=== PATIENT | female | born 1975 | race African-American/Black ===

== ENCOUNTER 2018-04-30 15:51 | Emergency (ER) | payer SELFPAY | END 2018-04-30 16:15 | disposition left against medical advice (07) | LOC: NAV ERS 15:51 | DX: Z53.21 Procedure and treatment not carried out due to patient leaving prior to being seen by health care provider (principal) ==

== ENCOUNTER 2018-12-30 10:55 | Emergency (ER) | payer SELFPAY ==
[2018-12-30 11:29] LABS: Bilirubin Negative (Negative); Blood, Urine Negative (Negative); Clarity Clear (Clear); Glucose, Urine (Dipstick) Negative (Negative); Leukocyte Negative (Negative); Nitrite Negative (Negative); Protein, Urine (Dipstick) Negative (Neg-Trace); Urobilinogen 0.2 mg/dL (Less than 2)
[2018-12-30 11:42] LABS: Pregnancy Test - Urine (BHCG) Negative (Negative); Specific Gravity 1.015 (1.002-1.036)
[2018-12-30 11:43] LABS: Pregu Control Background? CLEAR/WHITE (CLR/WHITE); Pregu Control Bar Appear? YES (CONTROL BAR)
[2018-12-30 12:10] LABS: #Basophils 0.1 thou/uL (0.0-0.2); #Eosinphils 0.3 thou/uL (0.0-0.7); #Lymphocytes 2.3 thou/uL (1.20-3.40); #Monocytes 0.5 thou/uL (0.11-0.59); #Neutrophils 4.8 thou/uL (1.40-6.50); %Eosinophils 3.4 % (0.0-10.0); %Lymphocytes 29.2 % (21.0-51.0); %Monocytes 6.6 % (0.0-10.0); %Neutrophils 59.8 % (42.0-75.0); Hemoglobin 12.2 g/dL (12.0-16.0); Mean Corpuscular Hemoglobin 25.8 pg (27.0-31.0); Mean Corpuscular Volume 83.3 fL (78.0-98.0); Mean Platelet Volume 7.8 fL (7.4-10.4); Platelet Count 224 thou/uL (130-400); RBC Distribution Width 13.8 % (11.5-14.5); Red Blood Cell (RBC) Count 4.74 mill/uL (4.20-5.40)
[2018-12-30 12:11] LABS: Medtox Control Line Valid? VALID (VALID)
[2018-12-30 12:14] LABS: Cocaine Metabolite Screen Detected (NotDetected); THC/Cannabinoid Screen Not Detected (NotDetected)
[2018-12-30 12:15] LABS: Amphetamine Detected (NotDetected); Benzodiazepine Screen Not Detected (NotDetected); Methamphetamine Detected (NotDetected); Opiate Screen Not Detected (NotDetected); Phencyclidine (PCP) Detected (NotDetected)
[2018-12-30 12:16] LABS: Barbiturates Screen Not Detected (NotDetected); Methadone Not Detected (NotDetected); Oxycodone Screen Not Detected (NotDetected); Tricyclic Screen Not Detected (NotDetected)
[2018-12-30 12:26] LABS: ALT (SGPT) 14 U/L (8-55); AST (SGOT) 13 U/L (5-34); Albumin 3.8 g/dL (3.5-5.0); Alkaline Phosphatase 79 U/L (40-150); Anion Gap 14 mmol/L (10-20); BUN (Urea Nitrogen) 11 mg/dL (7.0-18.7); Bilirubin, Total 0.2 mg/dL (0.2-1.2); Calc. Creatinine Clearance 0 mL/min (70-130); Calcium 9.2 mg/dL (7.8-10.44); Carbon Dioxide 25 mmol/L (22-29); Chloride 108 mmol/L (98-107); Estimated GFR-MDRD 68; Glucose 109 mg/dL (70-105); Lipase 60 U/L (8-78); Potassium 4.2 mmol/L (3.5-5.1); Protein, Total 6.8 g/dL (6.0-8.3); Sodium 143 mmol/L (136-145)
--- NOTE | 2018-12-30 13:16 | CT ---
CT of the abdomen and pelvis: 12/30/2018 COMPARISON: None HISTORY: Abdominal pain and bloating TECHNIQUE: Axial CT imaging at 5 mm intervals from lung bases through pubic symphysis with IV contras t. Coronal and sagittal reformatted imaging obtained. FINDINGS: The lack of oral contrast media limits assessment of the bowel. The imaged lung bases are unremarkable. No free intraperitoneal air. There is a tiny hypodensity measuring 4 mm within the anterior aspect of the left lobe of the liver, too small to characterize. The liver, spleen, pancreas, and adrenal glands are grossly unremarkable. The gallbladder is contracted and poorly assessed on this exam. The kidneys are unremar kable. No evidence for bowel inflammatory change or bowel obstruction appreciated. The appendix is unremarka ble. The stomach contains fluid and debris. The vascular structures of the abdomen/pelvis appear unremarkable. No lymphadenopathy is appreciated. Review of the osseous structures demonstrates no worrisome lytic or blastic bone lesions. IMPRESSION: No acute findings.
== END 2018-12-30 13:26 | disposition home or self-care (01) ==
LOC: NAV ERS 10:55
DX: R10.9 Unspecified abdominal pain (principal); R10.815 Periumbilic abdominal tenderness; F31.9 Bipolar disorder, unspecified; F20.9 Schizophrenia, unspecified; F90.9 Attention-deficit hyperactivity disorder, unspecified type; F17.210 Nicotine dependence, cigarettes, uncomplicated; Z79.899 Other long term (current) drug therapy
CPT/HCPCS: 74177; 80053; 80306; 81003; 81025; 83690; 85025

== ENCOUNTER 2019-04-27 18:29 | Emergency (ER) | payer MEDICAID, SELFPAY ==
[2019-04-27] MEDS ORDERED: Ketorolac Tromethamine 60 MG/2 ML VIAL ONE (19:03)
== END 2019-04-27 19:25 | disposition home or self-care (01) ==
LOC: NAV ERS 18:29
DX: M62.838 Other muscle spasm (principal); H92.09 Otalgia, unspecified ear; F31.9 Bipolar disorder, unspecified; F20.9 Schizophrenia, unspecified; F43.10 Post-traumatic stress disorder, unspecified; F90.9 Attention-deficit hyperactivity disorder, unspecified type; F17.210 Nicotine dependence, cigarettes, uncomplicated; Z79.899 Other long term (current) drug therapy
CPT/HCPCS: 96372; 99282; J1885

== ENCOUNTER 2019-10-18 19:20 | Emergency (ER) | payer SELFPAY ==
[2019-10-18 20:26] LABS: Bilirubin Negative (Negative); Blood, Urine Large (Negative); Glucose, Urine (Dipstick) Negative (Negative); Ketone, Urine Negative (Negative); Leukocyte Small (Negative); Nitrite Negative (Negative); Protein, Urine (Dipstick) 30 mg/dL (Neg-Trace); Urobilinogen 0.2 mg/dL (Less than 2); pH, Urine 6.5 (5.0-9.0)
[2019-10-18 20:31] LABS: Clarity Hazy (Clear)
[2019-10-18 20:34] LABS: Bacteria/HPF 1+ HPF (None Seen); RBC/HPF 21-50 HPF (0-3); Specific Gravity, Urine 1.027 (1.002-1.036); Squamous Epithelial 0-3 HPF (0-3); WBC/HPF Greater Than 50 HPF (0-3)
[2019-10-18] MEDS ORDERED: Cipro 250 MG TAB ONE (20:40)
== END 2019-10-18 20:55 | disposition home or self-care (01) ==
LOC: NAV ERS 19:20
DX: N39.0 Urinary tract infection, site not specified (principal); F31.9 Bipolar disorder, unspecified; F20.9 Schizophrenia, unspecified; F17.210 Nicotine dependence, cigarettes, uncomplicated; Z79.899 Other long term (current) drug therapy
CPT/HCPCS: 81003; 81015; 87077; 87086; 99283

== ENCOUNTER 2023-04-26 22:56 | Emergency (ER) | payer OTHER, SELFPAY ==
[2023-04-26] MEDS ORDERED: Famotidine 20 MG TAB ONE (23:30)
[2023-04-26] MEDS ORDERED: methylPREDNISolone Sod Succ/PF 125 MG/2 ML VIAL ONE (23:30)
[2023-04-26] MEDS ORDERED: Cephalexin 250 MG CAP ONE (23:30)
== END 2023-04-26 23:58 | disposition home or self-care (01) ==
LOC: NAV ERS 22:56
DX: T63.411A Toxic effect of venom of centipedes and venomous millipedes, accidental (unintentional), initial encounter (principal); T63.441A Toxic effect of venom of bees, accidental (unintentional), initial encounter; F17.210 Nicotine dependence, cigarettes, uncomplicated; W57.XXXA Bitten or stung by nonvenomous insect and other nonvenomous arthropods, initial encounter
CPT/HCPCS: 96372; 99282; J2930

== ENCOUNTER 2024-07-27 03:01 | Emergency (ER) | payer OTHER ==
[2024-07-27] MEDS ORDERED: Orphenadrine Citrate 60 MG/2 ML VIAL ONE (04:03)
[2024-07-27] MEDS ORDERED: Lidocaine 4% Patch ONE (04:08)
== END 2024-07-27 04:15 | disposition home or self-care (01) ==
LOC: NAV ERS 03:01
DX: M54.2 Cervicalgia (principal); M62.838 Other muscle spasm; F17.210 Nicotine dependence, cigarettes, uncomplicated
CPT/HCPCS: 96372; 99283; J2360